=== PATIENT | female | born 1970 | race Caucasian/White ===

== ENCOUNTER 2020-11-08 13:53 | Day surgery (SDC) | payer OTHER ==
[~2020-11-08] VITALS: Ht 170.2 cm; Wt 106.8 kg
[~2020-11-08 13:53] MED LIST: BUPIVACAINE/PF 0.5% ONE; EPINEPHRINE 1 MG/ML, 1ML ONE
[2020-11-08] MEDS ORDERED: CHLORHEXIDINE 15 ML UDC PO ONE (14:30)
[2020-11-08] MEDS ORDERED: LACTATED RINGERS 1,000 ML IV SCH (14:30)
[2020-11-08 14:54] VITALS: BP 135/85
[2020-11-08] MEDS ORDERED: LEVO25TA4 PO (15:04)
[2020-11-08] MEDS ORDERED: ESCI20TA8 PO (15:04)
[2020-11-08] MEDS ORDERED: LISI-170 PO (15:04)
[2020-11-08] MEDS ORDERED: FAMO-79 PO (15:04)
[2020-11-08 15:59] LABS: ALANINE AMINOTRANSFERASE 17 U/L (12-78); ALBUMIN 3.7 g/dL (3.4-5.0); ANION GAP 7 mmol/L (5-15); CALCIUM 9.2 mg/dL (8.5-10.1); CHLORIDE 109 mmol/L (98-107)
[2020-11-08 16:19] LABS: ALKALINE PHOSPHATASE 62 U/L (45-117); BILIRUBIN,TOTAL 0.4 mg/dL (0.2-1.0); CREATININE 0.79 mg/dL (0.55-1.02)
[2020-11-08] MEDS ORDERED: METOCLOPRAMIDE 5 MG/ML, 2ML ONE (16:25)
[2020-11-08] MEDS ORDERED: KETOROLAC 30 MG/1 ML ONE (16:25)
[2020-11-08] MEDS ORDERED: LABETALOL 5MG/ML, 20ML IV PRN (16:30)
[2020-11-08] MEDS ORDERED: METHOCARBAMOL 1,000 MG in DEXTROSE 5% 100 ML IV PRN (16:30)
[2020-11-08] MEDS ORDERED: PROMETHAZINE 25 MG/ML, 1ML IVPush PRN (16:30)
[2020-11-08] MEDS ORDERED: FENTANYL PF 100 MCG/2ML IV PRN (16:30)
[2020-11-08] MEDS ORDERED: ACETAMINOPHEN 325 MG TABLET PO PRN (16:30)
[2020-11-08] MEDS ORDERED: EPHEDRINE 50 MG/ML, 1ML IVPush PRN (16:30)
[2020-11-08] MEDS ORDERED: MEPERIDINE/PF 25MG/0.5ML IVPush PRN (16:30)
[2020-11-08] MEDS ORDERED: OXYcodone 5 MG/5 ML ORAL.SOL UDC PO PRN (16:30)
[2020-11-08] MEDS ORDERED: hydrALAzine 20 MG/ML, 1ML IV PRN (16:30)
[2020-11-08] MEDS ORDERED: LORazepam 2 MG/ML, 1ML IVPush PRN (16:30)
[2020-11-08] MEDS ORDERED: ONDANSETRON 2MG/ML, 2ML IVPush PRN (16:30)
[2020-11-08] MEDS ORDERED: HYDROmorphone 1 MG/ML, 1ML INJ IVPush PRN (16:30)
[2020-11-08] MEDS ORDERED: FENTANYL PF 250 MCG/5ML ONE (16:37)
[2020-11-08] MEDS ORDERED: MIDAZOLAM 1 MG/ML, 2ML ONE (16:37)
[2020-11-08] MEDS ORDERED: PROPOFOL 50 ML ONE (16:41)
[2020-11-08] MEDS ORDERED: ONDANSETRON 2MG/ML, 2ML ONE (16:42)
[2020-11-08] MEDS ORDERED: ROCURONIUM 10MG/ML,5ML ONE (16:42)
[2020-11-08] MEDS ORDERED: NEOSTIGMINE 1 MG/ML, 10ML ONE (16:42)
[2020-11-08] MEDS ORDERED: CEFAZOLIN 1,000 MG ONE (16:42)
[2020-11-08] MEDS ORDERED: GLYCOPYRROLATE 0.2MG/1ML, 5ML ONE (16:42)
[2020-11-08] MEDS ORDERED: SUCCINYLCHOLINE 20 MG/ML, 10ML ONE (16:42)
[2020-11-08] MEDS ORDERED: PROPOFOL 10 MG/ML, 20ML ONE (16:42)
[2020-11-08] MEDS ORDERED: DEXAMETHASONE 4 MG/ML, 1ML ONE (16:42)
[2020-11-08] MEDS ORDERED: FENTANYL PF 100 MCG/2ML ONE ×2 (17:17→17:53)
[2020-11-08] MEDS ORDERED: MEPERIDINE/PF 50 MG/ML ONE (17:18)
[2020-11-08] MEDS ORDERED: OXYcodone 5 MG/5 ML ORAL.SOL UDC ONE (17:53)
== END 2020-11-08 19:45 | disposition home or self-care (01) ==
LOC: OR 13:53
PROVIDERS: ATTEND Surgery
DX: K42.9 Umbilical hernia without obstruction or gangrene (principal); I10 Essential (primary) hypertension; Z20.822 Contact with and (suspected) exposure to COVID-19; Z79.890 Hormone replacement therapy; Z79.899 Other long term (current) drug therapy; Z87.891 Personal history of nicotine dependence; Z88.8 Allergy status to other drugs, medicaments and biological substances
CPT/HCPCS: 36415; 49652; 80053; 87635; C1781; J0171; J0330; J0690; J1100; J2175; J2250; J2405; J2704; J2710; J3010; J7120; S2900; J1885; J2765